=== PATIENT | male | born 1955 | race Caucasian/White ===

== ENCOUNTER 2020-04-24 12:48 | Inpatient (IN) ==
[2020-04-24 13:23] LABS: INR 1.3; Prothrombin Time 15.2 Seconds (9.4-12.1)
[2020-04-24 13:36] LABS: Basophils % 0.2 %; Hematocrit 43.4 % (37.5-50.1); Hemoglobin 14.5 g/dL (12.9-16.9); Immature Granulocytes % 0.5 % (0-4); Lymphocytes # 0.9 K/mcL (0.6-4.6); Lymphocytes % 20.6 %; Mean Corpuscular HGB Conc 33.4 g/dL (31.6-35.5); Mean Corpuscular Hemoglobin 31.3 pg (28.0-33.3); Mean Corpuscular Volume 93.5 fL (83.0-100.0); Mean Platelet Volume 10.1 fL (9.4-12.4); Monocytes # 0.3 K/mcL (0.0-1.3); Monocytes % 6.6 %; Neutrophils # 3.1 K/mcL (1.6-8.9); Platelet Count 170 K/mcL (140-400); Red Blood Count 4.64 M/mcL (4.19-5.50); Red Cell Distribution Width 13.6 % (11.5-14.5); Segmented Neutrophils % 72.1 %; White Blood Count 4.3 K/mcL (4.3-11.1)
[2020-04-24 13:38] LABS: Alanine Aminotransferase 14 Units/L (7-52); Albumin 3.6 g/dL (3.5-5.7); Albumin/Globulin Ratio 1.1 (1.1-2.2); Alkaline Phosphatase 53 Units/L (34-104); Aspartate Amino Transferase 21 Units/L (13-39); BUN/Creatinine Ratio 12 (6-26); Bilirubin,Direct 0.2 mg/dL (0.0-0.2); Bilirubin,Indirect 0.4 mg/dL (0.0-1.0); Bilirubin,Total 0.6 mg/dL (0.3-1.0); Blood Urea Nitrogen 11 mg/dL (8-23); Calcium 8.4 mg/dL (8.6-10.3); Carbon Dioxide 25 mEq/L (23-29); Chloride 93 mEq/L (98-107); Globulin 3.4 g/dL (2.4-3.5); Glucose 319 mg/dL (70-105); Osmolality,Calculated 280 (280-300); Potassium 3.8 mEq/L (3.5-5.1); Sodium 129 mEq/L (136-145); Troponin I < 0.03 ng/mL (< 0.04); eGFR For African Americans > 60 (> 60); eGFR For Non-African Americans > 60 (> 60)
[2020-04-24 14:06] LABS: Bilirubin,Urine Negative (Negative); Blood,Urine Small (Negative); Clarity,Urine Clear (Clear); Color,Urine Light-Yellow (Yellow); Glucose,Urine (UA) >=1000 mg/dL (Normal); Ketones,Urine 40 mg/dL (Negative); Leukocyte Esterase,Urine Negative (Negative); Mucus,Urine Few per lpf (None-Few); Nitrite,Urine Negative (Negative); PH,Urine 5.5 pH Units (5.0-8.0); Protein,Urine 50 mg/dL (Neg-Trace); RBC,Urine 0-3 per hpf (0-3); Specific Gravity,Urine > 1.030 (1.010-1.025); Squamous Epithelial Cell,Urine Few per hpf (None-Few); Urobilinogen,Urine Normal (Normal); WBC,Urine 0-3 per hpf (0-3)
[2020-04-24 14:32] LABS: Adenovirus Not Detected (Not Detect); Coronavirus 229E Not Detected (Not Detect); Coronavirus HKU1 Not Detected (Not Detect); Coronavirus NL63 Not Detected (Not Detect); Coronavirus OC43 Not Detected (Not Detect)
[2020-04-24 14:33] LABS: Bordetella Pertussis Not Detected (Not Detect); Chlamydophila pneumoniae Not Detected (Not Detect); Human Metapneumovirus Not Detected (Not Detect); Human Rhinovirus/Enterovirus Not Detected (Not Detect); Influenza A Subtype 2009 H1 Not Detected (Not Detect); Influenza B Not Detected (Not Detect); Mycoplasma pneumoniae Not Detected (Not Detect); Parainfluenza Virus 1 Not Detected (Not Detect); Parainfluenza Virus 2 Not Detected (Not Detect); Parainfluenza Virus 3 Not Detected (Not Detect); Parainfluenza Virus 4 Not Detected (Not Detect); Respiratory Syncytial Virus Not Detected (Not Detect); SARS-CoV-2 DETECTED (Not Detect)
[2020-04-24] MEDS ORDERED: Dexamethasone 4 MG/ML VIAL IVP ONE (14:38)
[2020-04-24] MEDS ORDERED: 0.9 % Sodium Chloride 1,000 ML IVC ONE (14:39)
[2020-04-24] MEDS ORDERED: Ondansetron ODT 4 MG TAB.RAPDIS SL PRN (16:22)
[2020-04-24] MEDS ORDERED: Naloxone 0.4 MG/ML INJ IVP PRN (16:22)
[2020-04-24] MEDS ORDERED: Acetaminophen 325 MG TABLET PO PRN (16:29)
[2020-04-24] MEDS ORDERED: Benzonatate 100 MG CAPSULE PO PRN (16:30)
[2020-04-24] MEDS ORDERED: D5% in Water 1,000 ML IVC PRN (16:43)
[2020-04-24] MEDS ORDERED: Dextrose Gel 15 GM/37.5 ML TUBE PO PRN ×2 (16:43)
[2020-04-24] MEDS ORDERED: *HR* Dextrose 50 % in Water (Vial) 50 ML VIAL IVP PRN (16:43)
[2020-04-24] MEDS: Insulin LISPRO 300 UNITS/3 ML VIAL SUBQ SCH ×2 (18:40→20:42)
[2020-04-24] MEDS: Ipratropium 1 PUFF INHALER IH SCH ×2 (19:49→23:14)
[2020-04-24] MEDS: Benzonatate 100 MG CAPSULE PO SCH (20:43)
[2020-04-25] MEDS: Ipratropium 1 PUFF INHALER IH SCH ×6 (03:55→23:57)
[2020-04-25] MEDS ORDERED: GI Cocktail 40 ML EACH PO ONE (04:30)
[2020-04-25] MEDS: *HR* Enoxaparin 40 MG/0.4 ML SYRINGE SQ SCH (05:30)
[2020-04-25 07:20] LABS: Basophils % 0.2 %; Hematocrit 43.8 % (37.5-50.1); Hemoglobin 14.4 g/dL (12.9-16.9); Immature Granulocytes % 0.6 % (0-4); Lymphocytes # 0.8 K/mcL (0.6-4.6); Lymphocytes % 14.4 %; Mean Corpuscular HGB Conc 32.9 g/dL (31.6-35.5); Mean Corpuscular Volume 94.2 fL (83.0-100.0); Mean Platelet Volume 9.8 fL (9.4-12.4); Monocytes # 0.3 K/mcL (0.0-1.3); Monocytes % 4.8 %; Neutrophils # 4.3 K/mcL (1.6-8.9); Platelet Count 179 K/mcL (140-400); Red Blood Count 4.65 M/mcL (4.19-5.50); Red Cell Distribution Width 13.5 % (11.5-14.5); White Blood Count 5.4 K/mcL (4.3-11.1)
[2020-04-25 07:52] LABS: Alanine Aminotransferase 12 Units/L (7-52); Albumin 3.4 g/dL (3.5-5.7); Alkaline Phosphatase 51 Units/L (34-104); Aspartate Amino Transferase 22 Units/L (13-39); BUN/Creatinine Ratio 18 (6-26); Bilirubin,Total 0.5 mg/dL (0.3-1.0); Blood Urea Nitrogen 14 mg/dL (8-23); Calcium 8.4 mg/dL (8.6-10.3); Carbon Dioxide 21 mEq/L (23-29); Chloride 98 mEq/L (98-107); Globulin 3.3 g/dL (2.4-3.5); Glucose 284 mg/dL (70-105); Lactate Dehydrogenase 338 Units/L (140-271); Osmolality,Calculated 285 (280-300); Potassium 3.9 mEq/L (3.5-5.1); Sodium 132 mEq/L (136-145); Total Protein 6.7 g/dL (6.4-8.9); eGFR For African Americans > 60 (> 60); eGFR For Non-African Americans > 60 (> 60)
[2020-04-25 07:57] LABS: Ferritin 832 ng/mL (20-250)
[2020-04-25] MEDS: Benzonatate 100 MG CAPSULE PO SCH ×3 (08:42→20:22)
[2020-04-25] MEDS: Famotidine 20 MG TABLET PO SCH ×2 (08:42→20:22)
[2020-04-25] MEDS: Insulin LISPRO 300 UNITS/3 ML VIAL SUBQ SCH ×4 (08:44→20:22)
[2020-04-25] MEDS ORDERED: Dexamethasone 4 MG/ML VIAL IVP SCH (09:00)
[2020-04-25] MEDS ORDERED: Dexamethasone Sodium Phos/PF 10 MG/ML VIAL IVP ONE (10:05)
[2020-04-25] MEDS ORDERED: Furosemide 40 MG/4 ML VIAL IVP ONE (10:05)
[2020-04-25] MEDS: Insulin DETEMIR 100 UNIT/ML X5UNITS SUBQ SCH (20:21)
[2020-04-25] MEDS: cilostazoL 100 MG TABLET PO SCH (20:22)
[2020-04-25] MEDS ORDERED: Insulin DETEMIR 100 UNIT/ML X5UNITS SUBQ SCH (21:00)
[2020-04-26] MEDS: Ipratropium 1 PUFF INHALER IH SCH ×5 (03:57→20:02)
[2020-04-26] MEDS: *HR* Enoxaparin 40 MG/0.4 ML SYRINGE SQ SCH (05:22)
[2020-04-26 06:38] LABS: Basophils % 0.1 %; Hematocrit 43.7 % (37.5-50.1); Hemoglobin 14.6 g/dL (12.9-16.9); Immature Granulocytes % 1.3 % (0-4); Lymphocytes # 0.6 K/mcL (0.6-4.6); Lymphocytes % 7.6 %; Mean Corpuscular HGB Conc 33.4 g/dL (31.6-35.5); Mean Corpuscular Hemoglobin 30.4 pg (28.0-33.3); Mean Corpuscular Volume 90.9 fL (83.0-100.0); Mean Platelet Volume 10.1 fL (9.4-12.4); Monocytes # 0.4 K/mcL (0.0-1.3); Monocytes % 4.6 %; Neutrophils # 7.1 K/mcL (1.6-8.9); Platelet Count 222 K/mcL (140-400); Red Blood Count 4.81 M/mcL (4.19-5.50); Red Cell Distribution Width 13.4 % (11.5-14.5); Segmented Neutrophils % 86.4 %
[2020-04-26 06:41] LABS: White Blood Count 8.2 K/mcL (4.3-11.1)
[2020-04-26] MEDS: cilostazoL 100 MG TABLET PO SCH ×2 (08:52→20:42)
[2020-04-26] MEDS: Cholecalciferol (D-3) 1,000 UNIT (25MCG) TABLET PO SCH (08:52)
[2020-04-26] MEDS: Famotidine 20 MG TABLET PO SCH ×2 (08:52→20:43)
[2020-04-26] MEDS: Benzonatate 100 MG CAPSULE PO SCH ×3 (08:52→20:43)
[2020-04-26] MEDS: Dexamethasone 4 MG/ML VIAL IVP SCH (08:53)
[2020-04-26] MEDS: Insulin DETEMIR 100 UNIT/ML X5UNITS SUBQ SCH ×2 (08:54→20:42)
[2020-04-26] MEDS: Insulin LISPRO 300 UNITS/3 ML VIAL SUBQ SCH ×4 (08:58→20:42)
[2020-04-26] MEDS ORDERED: Dexamethasone Sodium Phos/PF 10 MG/ML VIAL IVP SCH (09:00)
[2020-04-26 09:14] LABS: Alanine Aminotransferase 13 Units/L (7-52); Albumin 3.5 g/dL (3.5-5.7); Albumin/Globulin Ratio 0.9 (1.1-2.2); Alkaline Phosphatase 57 Units/L (34-104); Aspartate Amino Transferase 20 Units/L (13-39); BUN/Creatinine Ratio 25 (6-26); Bilirubin,Total 0.7 mg/dL (0.3-1.0); Blood Urea Nitrogen 22 mg/dL (8-23); C-Reactive Protein 164 mg/L (Less than 10); Carbon Dioxide 23 mEq/L (23-29); Chloride 93 mEq/L (98-107); Globulin 3.7 g/dL (2.4-3.5); Glucose 368 mg/dL (70-105); Lactate Dehydrogenase 357 Units/L (140-271); Osmolality,Calculated 290 (280-300); Potassium 3.9 mEq/L (3.5-5.1); Sodium 131 mEq/L (136-145); Total Protein 7.2 g/dL (6.4-8.9); eGFR For African Americans > 60 (> 60); eGFR For Non-African Americans > 60 (> 60)
[2020-04-26] MEDS ORDERED: Furosemide 40 MG/4 ML VIAL IVP ONE (09:23)
[2020-04-26 09:31] LABS: Ferritin 1198 ng/mL (20-250)
[2020-04-26] MEDS ORDERED: Isovue-370 500 ML BOTTLE IVP ONE (13:42)
[2020-04-26] MEDS ORDERED: Furosemide 20 MG/2 ML VIAL IVP ONE (18:00)
[2020-04-26] MEDS ORDERED: *HR* LORazepam 2 MG/ML VIAL IVP ONE (23:26)
[2020-04-27] MEDS: Ipratropium 1 PUFF INHALER IH SCH ×6 (00:09→19:59)
[2020-04-27] MEDS: *HR* Enoxaparin 40 MG/0.4 ML SYRINGE SQ SCH (06:20)
[2020-04-27 07:24] LABS: Basophils % 0.3 %; Hemoglobin 14.9 g/dL (12.9-16.9); Immature Granulocytes % 0.6 % (0-4); Lymphocytes # 0.7 K/mcL (0.6-4.6); Lymphocytes % 5.7 %; Mean Corpuscular HGB Conc 33.1 g/dL (31.6-35.5); Mean Corpuscular Hemoglobin 30.3 pg (28.0-33.3); Mean Corpuscular Volume 91.6 fL (83.0-100.0); Mean Platelet Volume 10.2 fL (9.4-12.4); Monocytes # 0.5 K/mcL (0.0-1.3); Monocytes % 3.9 %; Neutrophils # 10.4 K/mcL (1.6-8.9); Platelet Count 273 K/mcL (140-400); Red Blood Count 4.91 M/mcL (4.19-5.50); Red Cell Distribution Width 13.3 % (11.5-14.5); Segmented Neutrophils % 89.5 %; White Blood Count 11.7 K/mcL (4.3-11.1)
[2020-04-27 07:41] LABS: BUN/Creatinine Ratio 28 (6-26); Blood Urea Nitrogen 28 mg/dL (8-23); Calcium 8.9 mg/dL (8.6-10.3); Carbon Dioxide 27 mEq/L (23-29); Chloride 95 mEq/L (98-107); Glucose 359 mg/dL (70-105); Osmolality,Calculated 298 (280-300); Potassium 3.9 mEq/L (3.5-5.1); Sodium 134 mEq/L (136-145); eGFR For African Americans > 60 (> 60); eGFR For Non-African Americans > 60 (> 60)
[2020-04-27] MEDS: cilostazoL 100 MG TABLET PO SCH ×2 (08:17→21:13)
[2020-04-27] MEDS: Cholecalciferol (D-3) 1,000 UNIT (25MCG) TABLET PO SCH (08:17)
[2020-04-27] MEDS: Dexamethasone 4 MG/ML VIAL IVP SCH (08:17)
[2020-04-27] MEDS: Famotidine 20 MG TABLET PO SCH ×2 (08:17→21:13)
[2020-04-27] MEDS: Benzonatate 100 MG CAPSULE PO SCH ×3 (08:17→21:13)
[2020-04-27] MEDS: Insulin LISPRO 300 UNITS/3 ML VIAL SUBQ SCH ×4 (08:18→21:14)
[2020-04-27] MEDS: Insulin DETEMIR 100 UNIT/ML X5UNITS SUBQ SCH ×2 (10:15→22:42)
[2020-04-27] MEDS ORDERED: Furosemide 40 MG/4 ML VIAL IVP ONE (11:36)
[2020-04-27] MEDS ORDERED: *HR* Metoprolol 5 MG/5 ML VIAL IVP ONE (14:12)
[2020-04-27] MEDS ORDERED: Insulin LISPRO 300 UNITS/3 ML VIAL SUBQ ONE (18:50)
[2020-04-27] MEDS ORDERED: Melatonin 3 MG TABLET PO PRN (22:35)
[2020-04-27] MEDS ORDERED: *HR* LORazepam 2 MG/ML VIAL IVP ONE (22:37)
[2020-04-28] MEDS: Ipratropium 1 PUFF INHALER IH SCH ×7 (00:06→23:34)
[2020-04-28] MEDS ORDERED: Haloperidol Lactate 5 MG/ML VIAL IVP ONE (00:52)
[2020-04-28] MEDS: *HR* Enoxaparin 40 MG/0.4 ML SYRINGE SQ SCH (05:00)
[2020-04-28 05:46] LABS: Basophils % 0.3 %; Hematocrit 46.2 % (37.5-50.1); Hemoglobin 15.6 g/dL (12.9-16.9); Immature Granulocytes % 0.7 % (0-4); Lymphocytes # 0.7 K/mcL (0.6-4.6); Lymphocytes % 6.2 %; Mean Corpuscular HGB Conc 33.8 g/dL (31.6-35.5); Mean Corpuscular Hemoglobin 30.6 pg (28.0-33.3); Mean Corpuscular Volume 90.8 fL (83.0-100.0); Mean Platelet Volume 10.2 fL (9.4-12.4); Monocytes # 0.4 K/mcL (0.0-1.3); Monocytes % 3.2 %; Neutrophils # 10.5 K/mcL (1.6-8.9); Platelet Count 331 K/mcL (140-400); Red Blood Count 5.09 M/mcL (4.19-5.50); Red Cell Distribution Width 13.1 % (11.5-14.5); Segmented Neutrophils % 89.6 %; White Blood Count 11.7 K/mcL (4.3-11.1)
[2020-04-28 06:08] LABS: BUN/Creatinine Ratio 37 (6-26); Blood Urea Nitrogen 34 mg/dL (8-23); Calcium 9.1 mg/dL (8.6-10.3); Carbon Dioxide 27 mEq/L (23-29); Chloride 97 mEq/L (98-107); Glucose 316 mg/dL (70-105); Lactate Dehydrogenase 423 Units/L (140-271); Osmolality,Calculated 302 (280-300); Potassium 3.7 mEq/L (3.5-5.1); Sodium 136 mEq/L (136-145); eGFR For African Americans > 60 (> 60); eGFR For Non-African Americans > 60 (> 60)
[2020-04-28 06:24] LABS: Ferritin 1474 ng/mL (20-250)
[2020-04-28] MEDS: Insulin LISPRO 300 UNITS/3 ML VIAL SUBQ SCH ×4 (08:23→20:23)
[2020-04-28] MEDS: Dexamethasone 4 MG/ML VIAL IVP SCH (08:23)
[2020-04-28] MEDS: Benzonatate 100 MG CAPSULE PO SCH ×3 (08:23→20:15)
[2020-04-28] MEDS: cilostazoL 100 MG TABLET PO SCH ×2 (08:23→20:15)
[2020-04-28] MEDS: Furosemide 40 MG/4 ML VIAL IVP SCH (08:23)
[2020-04-28] MEDS: Famotidine 20 MG TABLET PO SCH ×2 (08:23→20:15)
[2020-04-28] MEDS: Cholecalciferol (D-3) 1,000 UNIT (25MCG) TABLET PO SCH (08:23)
[2020-04-28] MEDS: Insulin DETEMIR 100 UNIT/ML X5UNITS SUBQ SCH ×3 (08:25→20:24)
[2020-04-28] MEDS ORDERED: *HR* LORazepam 2 MG/ML VIAL IVP ONE (08:47)
[2020-04-28] MEDS ORDERED: Insulin LISPRO 300 UNITS/3 ML VIAL SUBQ SCH (10:29)
[2020-04-28] MEDS: Dexmedetomidine HCl 400 MCG/100 ML MLS IVC SCH ×2 (12:04→20:50)
[2020-04-29 01:11] LABS: Basophils % 0.3 %; Hematocrit 46.3 % (37.5-50.1); Hemoglobin 15.8 g/dL (12.9-16.9); Immature Granulocytes % 0.7 % (0-4); Lymphocytes # 0.7 K/mcL (0.6-4.6); Lymphocytes % 10.9 %; Mean Corpuscular HGB Conc 34.1 g/dL (31.6-35.5); Mean Corpuscular Hemoglobin 31.2 pg (28.0-33.3); Mean Corpuscular Volume 91.5 fL (83.0-100.0); Mean Platelet Volume 10.3 fL (9.4-12.4); Monocytes # 0.2 K/mcL (0.0-1.3); Monocytes % 3.4 %; Neutrophils # 5.2 K/mcL (1.6-8.9); Platelet Count 286 K/mcL (140-400); Red Blood Count 5.06 M/mcL (4.19-5.50); Segmented Neutrophils % 84.7 %; White Blood Count 6.1 K/mcL (4.3-11.1)
[2020-04-29 01:30] LABS: Alanine Aminotransferase 12 Units/L (7-52); Albumin 3.3 g/dL (3.5-5.7); Albumin/Globulin Ratio 0.9 (1.1-2.2); Alkaline Phosphatase 60 Units/L (34-104); Aspartate Amino Transferase 16 Units/L (13-39); BUN/Creatinine Ratio 39 (6-26); Bilirubin,Total 0.8 mg/dL (0.3-1.0); Blood Urea Nitrogen 43 mg/dL (8-23); Carbon Dioxide 25 mEq/L (23-29); Chloride 98 mEq/L (98-107); Globulin 3.8 g/dL (2.4-3.5); Glucose 349 mg/dL (70-105); Osmolality,Calculated 307 (280-300); Potassium 4.2 mEq/L (3.5-5.1); Sodium 136 mEq/L (136-145); Total Protein 7.1 g/dL (6.4-8.9); eGFR For African Americans > 60 (> 60); eGFR For Non-African Americans > 60 (> 60)
[2020-04-29 01:33] LABS: Anisocytosis 1+ (Not Present); Platelet Estimate Normal (Normal)
[2020-04-29] MEDS: Ipratropium 1 PUFF INHALER IH SCH ×6 (04:03→23:48)
[2020-04-29] MEDS: *HR* Enoxaparin 40 MG/0.4 ML SYRINGE SQ SCH (05:13)
[2020-04-29] MEDS: Dexmedetomidine HCl 400 MCG/100 ML MLS IVC SCH (07:51)
[2020-04-29] MEDS: Dexamethasone Sodium Phos/PF 10 MG/ML VIAL IVP SCH (09:18)
[2020-04-29] MEDS: Cholecalciferol (D-3) 1,000 UNIT (25MCG) TABLET PO SCH (09:19)
[2020-04-29] MEDS: cilostazoL 100 MG TABLET PO SCH (09:19)
[2020-04-29] MEDS: Furosemide 40 MG/4 ML VIAL IVP SCH (09:19)
[2020-04-29] MEDS: Famotidine 20 MG TABLET PO SCH (09:19)
[2020-04-29] MEDS: Benzonatate 100 MG CAPSULE PO SCH ×2 (09:19→13:04)
[2020-04-29] MEDS: Insulin LISPRO 300 UNITS/3 ML VIAL SUBQ SCH ×4 (09:59→20:35)
[2020-04-29] MEDS: Insulin DETEMIR 100 UNIT/ML X5UNITS SUBQ SCH ×2 (09:59→20:34)
[2020-04-30] MEDS: Benzonatate 100 MG CAPSULE PO SCH ×4 (00:25→19:54)
[2020-04-30] MEDS: Famotidine 20 MG TABLET PO SCH ×3 (00:25→19:54)
[2020-04-30] MEDS: cilostazoL 100 MG TABLET PO SCH ×3 (00:25→19:54)
[2020-04-30 01:47] LABS: Basophils % 0.5 %; Hematocrit 51.3 % (37.5-50.1); Hemoglobin 16.9 g/dL (12.9-16.9); Immature Granulocytes % 0.5 % (0-4); Lymphocytes # 0.5 K/mcL (0.6-4.6); Lymphocytes % 10.2 %; Mean Corpuscular HGB Conc 32.9 g/dL (31.6-35.5); Mean Corpuscular Hemoglobin 30.9 pg (28.0-33.3); Mean Corpuscular Volume 93.8 fL (83.0-100.0); Mean Platelet Volume 10.4 fL (9.4-12.4); Monocytes # 0.2 K/mcL (0.0-1.3); Monocytes % 4.1 %; Neutrophils # 3.7 K/mcL (1.6-8.9); Platelet Count 296 K/mcL (140-400); Red Blood Count 5.47 M/mcL (4.19-5.50); Segmented Neutrophils % 84.7 %; White Blood Count 4.4 K/mcL (4.3-11.1)
[2020-04-30 02:07] LABS: Alanine Aminotransferase 13 Units/L (7-52); Albumin 3.2 g/dL (3.5-5.7); Albumin/Globulin Ratio 0.8 (1.1-2.2); Alkaline Phosphatase 61 Units/L (34-104); Aspartate Amino Transferase 17 Units/L (13-39); BUN/Creatinine Ratio 51 (6-26); Bilirubin,Total 0.7 mg/dL (0.3-1.0); Blood Urea Nitrogen 50 mg/dL (8-23); Calcium 9.3 mg/dL (8.6-10.3); Carbon Dioxide 25 mEq/L (23-29); Chloride 102 mEq/L (98-107); Globulin 3.9 g/dL (2.4-3.5); Glucose 292 mg/dL (70-105); Lactate Dehydrogenase 380 Units/L (140-271); Osmolality,Calculated 318 (280-300); Potassium 4.1 mEq/L (3.5-5.1); Sodium 142 mEq/L (136-145); Total Protein 7.1 g/dL (6.4-8.9); eGFR For African Americans > 60 (> 60); eGFR For Non-African Americans > 60 (> 60)
[2020-04-30 02:21] LABS: Ferritin 1341 ng/mL (20-250)
[2020-04-30] MEDS: Dexmedetomidine HCl 400 MCG/100 ML MLS IVC SCH ×4 (02:46→22:51)
[2020-04-30] MEDS: Ipratropium 1 PUFF INHALER IH SCH ×6 (04:04→23:14)
[2020-04-30] MEDS: *HR* Enoxaparin 40 MG/0.4 ML SYRINGE SQ SCH ×2 (04:33→19:00)
[2020-04-30] MEDS: Cholecalciferol (D-3) 1,000 UNIT (25MCG) TABLET PO SCH (07:36)
[2020-04-30] MEDS: Insulin DETEMIR 100 UNIT/ML X5UNITS SUBQ SCH ×3 (08:49→19:54)
[2020-04-30] MEDS: Dexamethasone 4 MG/ML VIAL IVP SCH (08:49)
[2020-04-30] MEDS: Furosemide 40 MG/4 ML VIAL IVP SCH (08:59)
[2020-04-30] MEDS: Dexamethasone Sodium Phos/PF 10 MG/ML VIAL IVP SCH (09:17)
[2020-04-30] MEDS: Insulin LISPRO 300 UNITS/3 ML VIAL SUBQ SCH ×4 (09:25→19:53)
[2020-04-30] MEDS ORDERED: Isovue-370 500 ML BOTTLE IVP ONE (09:39)
[2020-04-30 10:00] LABS: ABG Base Excess 3 mEq/L (-2 to 3); ABG HCO3 27 mEq/L (21-27); ABG Oxygen Saturation 94 % (95-98); ABG PCO2 38 mmHg (35-45); ABG PH 7.46 pH Units (7.32-7.45); ABG PO2 66 mmHg (85-104); ABG TCO2 28 mEq/L (20-26)
[2020-04-30 11:02] LABS: Thyroid Stimulating Hormone 1.17 mcIU/mL (0.340-5.600)
[2020-04-30 11:13] LABS: Folate 10.6 ng/mL (3.0-16.0)
[2020-04-30] MEDS ORDERED: *HR* LORazepam 2 MG/ML VIAL IVP ONE (18:00)
[2020-04-30] MEDS ORDERED: Saline Nasal Spray 44 ML BOTTLE NS PRN (19:31)
[2020-04-30] MEDS: Artificial Tears SOLN 15 ML BOTTLE BOTH EYES SCH (19:52)
[2020-04-30] MEDS ORDERED: Haloperidol Lactate 5 MG/ML VIAL IVP ONE ×2 (22:13→23:00)
[2020-05-01] MEDS ORDERED: Haloperidol Lactate 5 MG/ML VIAL IVP ONE (00:33)
[2020-05-01] MEDS: Dexmedetomidine HCl 400 MCG/100 ML MLS IVC SCH ×4 (03:02→22:20)
[2020-05-01] MEDS: Ipratropium 1 PUFF INHALER IH SCH ×5 (03:55→19:54)
[2020-05-01 05:10] LABS: Basophils % 0.3 %; Eosinophils % 0.3 %; Immature Granulocytes % 0.6 % (0-4); Lymphocytes # 0.5 K/mcL (0.6-4.6); Lymphocytes % 14.1 %; Mean Corpuscular HGB Conc 33.5 g/dL (31.6-35.5); Mean Corpuscular Hemoglobin 30.9 pg (28.0-33.3); Mean Corpuscular Volume 92.2 fL (83.0-100.0); Mean Platelet Volume 10.7 fL (9.4-12.4); Monocytes # 0.1 K/mcL (0.0-1.3); Monocytes % 4.2 %; Neutrophils # 2.7 K/mcL (1.6-8.9); Platelet Count 278 K/mcL (140-400); Red Blood Count 6.12 M/mcL (4.19-5.50); Segmented Neutrophils % 80.5 %; White Blood Count 3.3 K/mcL (4.3-11.1)
[2020-05-01 05:25] LABS: Hematocrit 56.4 % (37.5-50.1); Hemoglobin 18.9 g/dL (12.9-16.9)
[2020-05-01 05:26] LABS: Albumin 3.2 g/dL (3.5-5.7); Albumin/Globulin Ratio 0.7 (1.1-2.2); Bilirubin,Total 0.8 mg/dL (0.3-1.0); Calcium 9.3 mg/dL (8.6-10.3); Globulin 4.6 g/dL (2.4-3.5); Magnesium 2.7 mg/dL (1.6-2.6); Phosphorous 3.5 mg/dL (2.7-4.5); Total Protein 7.8 g/dL (6.4-8.9)
[2020-05-01] MEDS: *HR* Enoxaparin 40 MG/0.4 ML SYRINGE SQ SCH (06:01)
[2020-05-01] MEDS ORDERED: 0.9 % Sodium Chloride 1,000 ML ONE ×2 (06:39→09:29)
[2020-05-01] MEDS ORDERED: 0.9 % Sodium Chloride 1,000 ML IVC ONE (06:54)
[2020-05-01] MEDS ORDERED: *HR* Heparin 5,000 UNIT/ML VIAL IVP PRN ×2 (07:28)
[2020-05-01] MEDS ORDERED: Heparin 25,000UNIT/250ML 1/2NS 25,000 UNIT/250 ML IV.SOLN IVC SCH (07:30)
[2020-05-01 08:09] LABS: ABG Base Excess 4 mEq/L (-2 to 3); ABG HCO3 25 mEq/L (21-27); ABG Oxygen Saturation 98 % (95-98); ABG PCO2 29 mmHg (35-45); ABG PH 7.54 pH Units (7.32-7.45); ABG PO2 83 mmHg (85-104); ABG TCO2 26 mEq/L (20-26); Blood Gas Modality AVAPS; Blood Gas VT 500 cc
[2020-05-01] MEDS: FentaNYL (PF) 1,000 MCG/100 ML IV.SOLN IVC SCH ×3 (09:00→21:34)
[2020-05-01] MEDS ORDERED: Dexamethasone Sodium Phos/PF 10 MG/ML VIAL IVP SCH (09:00)
[2020-05-01] MEDS: Midazolam HCl 50 MG/100 ML IV.SOLN IVC SCH ×3 (09:00→18:34)
[2020-05-01] MEDS ORDERED: Multivit/Ca/Min/Fe/FA 1 TAB TABLET PO SCH (09:00)
[2020-05-01] MEDS: Norepinephrine 4 MG/254 ML IV.SOLN IVC SCH ×5 (09:00→22:22)
[2020-05-01 10:16] LABS: ABG Base Excess 1 mEq/L (-2 to 3); ABG HCO3 32 mEq/L (21-27); ABG Oxygen Saturation 94 % (95-98); ABG PCO2 72 mmHg (35-45); ABG PH 7.25 pH Units (7.32-7.45); ABG PO2 87 mmHg (85-104); ABG TCO2 34 mEq/L (20-26)
[2020-05-01] MEDS: Insulin LISPRO 300 UNITS/3 ML VIAL SUBQ SCH ×4 (10:57→20:36)
[2020-05-01] MEDS: Benzonatate 100 MG CAPSULE PO SCH ×3 (11:08→20:21)
[2020-05-01] MEDS: Cholecalciferol (D-3) 1,000 UNIT (25MCG) TABLET PO SCH (11:09)
[2020-05-01] MEDS: Artificial Tears SOLN 15 ML BOTTLE BOTH EYES SCH ×3 (11:10→20:20)
[2020-05-01] MEDS: Cisatracurium 200 MG in 0.9 % Sodium Chloride 180 ML IVC SCH ×2 (11:10→21:34)
[2020-05-01] MEDS ORDERED: *HR* Vasopressin 20 UNIT/ML VIAL IVP ONE (12:09)
[2020-05-01] MEDS ORDERED: Phenylephrine 10 MG in 0.9 % Sodium Chloride 250 ML IVC SCH (12:15)
[2020-05-01] MEDS ORDERED: Vasopressin 40 UNIT in D5% in Water 100 ML IVC SCH (12:15)
[2020-05-01] MEDS: Albumin 25% 25gram/100mL 25 GM/100 ML IV.SOLN IVC SCH ×2 (12:20→12:49)
[2020-05-01] MEDS ORDERED: Artificial Tears SOLN 15 ML BOTTLE BOTH EYES PRN (12:59)
[2020-05-01] MEDS ORDERED: *HR* Metoprolol 5 MG/5 ML VIAL IVP ONE (13:24)
[2020-05-01 13:39] LABS: Heparin anti-factor XA UFH 0.91 IU/mL (0.30-0.70)
[2020-05-01 13:40] LABS: INR 1.8; Prothrombin Time 20.3 Seconds (9.4-12.1)
[2020-05-01] MEDS ORDERED: Perflutren Lipid Microsphere 1.3 ML in 0.9 % Sodium Chloride 8.7 ML IVP PRN (14:50)
[2020-05-01] MEDS ORDERED: Acetaminophen IV 1,000 MG/100 ML BAG IVPB ONE (15:41)
[2020-05-01] MEDS ORDERED: Pantoprazole 40 MG VIAL IVP SCH (18:00)
[2020-05-01] MEDS ORDERED: Vancomycin 1,500 MG/265 ML IV.SOLN IVPB ONE (20:00)
[2020-05-01] MEDS ORDERED: Chlorhexidine Rinse 15 ML MOUTHWASH MM SCH (21:00)
[2020-05-01 21:18] VITALS: BP 121/79
[2020-05-01] MEDS ORDERED: Lidocaine -MPF 2% 5 ML VIAL INFILT ONE (22:46)
[2020-05-01] MEDS ORDERED: *HR* Midazolam HCl 5 MG/5 ML VIAL IVP ONE (22:46)
[2020-05-01] MEDS ORDERED: *HR* Rocuronium Bromide 50 MG/5 ML VIAL IVP ONE (22:46)
[2020-05-01] MEDS ORDERED: *HR* Etomidate 20 MG/10 ML AMPUL IVP ONE (22:46)
[2020-05-02] MEDS ORDERED: Vancomycin 1,500 MG/265 ML IV.SOLN IVPB SCH (08:00)
[2020-05-02] MEDS ORDERED: Piperacillin/Tazobactam 3.375 GM in 0.9 % Sodium Chloride Mini Bag 100 ML IVPB SCH (20:00)
== END 2020-05-01 22:47 | disposition short-term general hospital (02) | DRG 871 ==
LOC: 2NENU 12:48 → EMEROOARM 12:48 → SUATTDRO 15:43 → 2NENU 17:12 → SUATTDRO 04-25 14:38 → 2NNU 04-28 13:07 → ICNU 05-01 08:30
PROVIDERS: ADMIT Internal Medicine; ATTEND Internal Medicine